=== PATIENT | female | born 1990 | race Caucasian/White ===

== ENCOUNTER 2018-12-26 10:40 | Observation (INO) | payer OTHER ==
[~2018-12-26] VITALS: Ht 154.9 cm; Wt 68.2 kg
[2018-12-26 11:06] VITALS: BP 124/65
[2018-12-26] MEDS ORDERED: ACYC200C PO (11:08)
[2018-12-26] MEDS ORDERED: PREN1TAB80 PO (11:08)
== END 2018-12-26 13:35 | disposition home or self-care (01) ==
LOC: 4S 10:40
PROVIDERS: ADMIT Obstetrics & Gynecology; ATTEND Obstetrics & Gynecology
DX: O62.9 Abnormality of forces of labor, unspecified (principal); Z3A.39 39 weeks gestation of pregnancy
CPT/HCPCS: 81002; G0378

== ENCOUNTER 2018-12-26 23:36 | Inpatient (IN) | payer OTHER ==
[~2018-12-26] VITALS: Ht 154.9 cm; Wt 68.0 kg
[~2018-12-26 23:36] MED LIST: ACYC200C PO; PREN1TAB80 PO
[2018-12-27 00:05] VITALS: BP 110/55
[2018-12-27] MEDS: RINGERS SOLUTION,LACTATED 1,000 ML IV SCH ×2 (02:29→06:13)
[2018-12-27] MEDS ORDERED: CITRIC ACID/SODIUM CITRATE 30 ML SOLUTION UDCUP PO PRN (02:30)
[2018-12-27] MEDS ORDERED: LIDOCAINE/PF 1% 30 ML VIAL INJ PRN (02:30)
[2018-12-27] MEDS ORDERED: TERBUTALINE SULFATE 1 MG/ML VIAL SQ PRN (02:30)
[2018-12-27] MEDS ORDERED: FentaNYL CITRATE-PF 100 MCG/2 ML VIAL IVP PRN (02:30)
[2018-12-27] MEDS ORDERED: METOCLOPRAMIDE HCL 5 MG/ML 2 ML VIAL IVP PRN (02:30)
[2018-12-27 03:24] LABS: BASOPHILS % (AUTO) 0.3 % (0.0-2.0); EOSINOPHILS % (AUTO) 0 % (1.0-6.0); HEMATOCRIT 34.8 % (36-46); HEMOGLOBIN 11.6 g/dL (12.0-16.0); LYMPHOCYTES # (AUTO) 0.9 K/uL (1.0-4.8); LYMPHOCYTES % (AUTO) 5.2 % (22.0-44.0); MEAN CORPUSCULAR HEMOGLOBIN 29.4 pg (26.0-34.0); MEAN CORPUSCULAR HGB CONC 33.3 G/dL (31.0-37.0); MEAN CORPUSCULAR VOLUME 88 fL (80-100); MONOCYTES # (AUTO) 0.5 K/uL (0.1-1.0); MONOCYTES % (AUTO) 2.9 % (2.0-9.0); NEUTROPHILS # (AUTO) 15.2 K/uL (1.8-7.7); PLATELET COUNT (AUTO)-OB 298 K/uL (150-450); RED BLOOD CELL COUNT(AUTO) 3.93 MIL/uL (4.00-5.20); RED CELL DISTRIBUTION WIDTH 13.4 % (11.5-14.5)
[2018-12-27] MEDS ORDERED: ROPIVACAINE HCL/PF 0.2% 100 ML ED ONE ×2 (03:47→10:53)
[2018-12-27 03:51] LABS: NEUTROPHILS % (AUTO) 91.6 % (40.0-70.0)
[2018-12-27] MEDS ORDERED: ROPIVACAINE HCL/PF 0.2% 100 ML ED PRN (04:15)
[2018-12-27] MEDS ORDERED: ONDANSETRON HCL 4 MG/2 ML VIAL IVP PRN (04:15)
[2018-12-27] MEDS ORDERED: DiphenhydrAMINE HCL 50 MG/ML VIAL IVP PRN (04:15)
[2018-12-27] MEDS ORDERED: AMPICILLIN SODIUM 2 GM/NS 100 ML IV ONE ×2 (05:59→06:00)
[2018-12-27] MEDS ORDERED: OXYTOCIN 30 UNITS/LACT RINGERS 500 ML IV ONE ×2 (07:22→17:09)
[2018-12-27] MEDS ORDERED: AMPICILLIN SODIUM 1 GM/NS 50 ML IV SCH (10:00)
[2018-12-27] MEDS ORDERED: GLYCERIN/WITCH HAZEL LEAF 40 PADS JAR TP PRN ×2 (14:45→17:15)
[2018-12-27] MEDS ORDERED: RINGERS SOLUTION,LACTATED 1,000 ML IV ONE ×2 (14:45→17:09)
[2018-12-27] MEDS ORDERED: OxyCODONE HCL/ACETAMINOPHEN 5-325 MG TABLET PO PRN ×3 (14:45→17:15)
[2018-12-27] MEDS ORDERED: LANOLIN 7 GM OINTMENT TP PRN ×2 (14:45→17:15)
[2018-12-27] MEDS ORDERED: BENZOCAINE 20%/MENTHOL 56 GM SPRAY CANISTER TP PRN ×2 (14:45→17:15)
[2018-12-27] MEDS ORDERED: MEASLES/MUMPS/RUBELLA VACCINE, LIVE 0.5 ML/VIAL SQ ONE (14:45)
[2018-12-27] MEDS: IBUPROFEN 600 MG TABLET PO PRN (16:47)
[2018-12-27] MEDS: MAGNESIUM HYDROXIDE SUSPENSION 30 ML UDCUP PO SCH (21:34)
[2018-12-28 05:59] LABS: BASOPHILS % (AUTO) 0.2 % (0.0-2.0); EOSINOPHILS % (AUTO) 0.4 % (1.0-6.0); HEMATOCRIT 28.5 % (36-46); HEMOGLOBIN 9.5 g/dL (12.0-16.0); LYMPHOCYTES # (AUTO) 1.6 K/uL (1.0-4.8); LYMPHOCYTES % (AUTO) 12.9 % (22.0-44.0); MEAN CORPUSCULAR HEMOGLOBIN 29.9 pg (26.0-34.0); MEAN CORPUSCULAR HGB CONC 33.5 G/dL (31.0-37.0); MEAN CORPUSCULAR VOLUME 89 fL (80-100); MONOCYTES % (AUTO) 7.9 % (2.0-9.0); NEUTROPHILS # (AUTO) 9.9 K/uL (1.8-7.7); NEUTROPHILS % (AUTO) 78.6 % (40.0-70.0); PLATELET COUNT (AUTO)-OB 237 K/uL (150-450); RED BLOOD CELL COUNT(AUTO) 3.19 MIL/uL (4.00-5.20); RED CELL DISTRIBUTION WIDTH 13.8 % (11.5-14.5)
[2018-12-28] MEDS: IBUPROFEN 600 MG TABLET PO PRN ×2 (06:08→14:04)
[2018-12-28] MEDS: MAGNESIUM HYDROXIDE SUSPENSION 30 ML UDCUP PO SCH (08:13)
[2018-12-28] MEDS ORDERED: IBUP-2071 PO (10:56)
[2018-12-28] MEDS ORDERED: DSS100 PO (10:56)
[2018-12-28] MEDS ORDERED: FERR-89 PO (10:57)
== END 2018-12-28 14:20 | disposition home or self-care (01) | DRG 807 ==
LOC: OBSVTOIN 23:36 → 4S 23:36
PROVIDERS: ADMIT Obstetrics & Gynecology; ATTEND Obstetrics & Gynecology
PROC: 10907ZC Drainage of Amniotic Fluid, Therapeutic from Products of Conception, Via Natural or Artificial Opening (ICD-10-PCS; principal; 2018-12-27)
PROC: 10E0XZZ Delivery of Products of Conception, External Approach (ICD-10-PCS; 2018-12-27)
PROC: 0UQMXZZ Repair Vulva, External Approach (ICD-10-PCS; 2018-12-27)
PROC: 3E0R3BZ Introduction of Anesthetic Agent into Spinal Canal, Percutaneous Approach (ICD-10-PCS; 2018-12-27)
PROC: 00HU33Z Insertion of Infusion Device into Spinal Canal, Percutaneous Approach (ICD-10-PCS; 2018-12-27)
DX: O99.824 Streptococcus B carrier state complicating childbirth (principal); Z37.0 Single live birth; O71.82 Other specified trauma to perineum and vulva; Z3A.39 39 weeks gestation of pregnancy
CPT/HCPCS: 86850; 86900; 86901; J0290; J2590; J2795; J7120